=== PATIENT | female | born 2000 ===

== ENCOUNTER → 2021-05-02 00:44 | Outpatient (CLI) | payer BC, OTHER, SELFPAY ==
--- NOTE | 2021-05-02 08:00 | ETT_ITS ---
APPROVED REPORT Exam: Exercise Treadmill Patient Location: Out-Patient Room/Bed: Stress Nurse: Adeola Marcum RN Ordering Provider:SCAR BONDS, Contact Number: [phone] BMI: 22.86 Baseline Rhythm: Sinus Rhythm Comment: Sinus Arrhythmia Indications: chest pain Medical History Medical History: none Cardiac Medications: none Allergies: none Cardiac Risk Factors: Family Hx, Asthma Previous Cardiac Procedures: none Pretest Chest Pain Characteristics: none Exercise History: Physically active Physical Disabilities: none Lung Sounds: Clear to auscultation Heart Sounds: Regular Stress Test Details Test: Exercise stress testing was performed using a Elías protocol. Rest Stress HR Resting HR Supine: 60 bpm Max Heart Rate (APMHR): 199 bpm Resting HR Standin bpm Target HR (85% APMHR): 169 bpm Max HR Achieved: 188 bpm % of APMHR: 94 Recovery HR: 88 bpm HR response to stress: Normal HR response to stress BP Resting BP Supine: 110/82 mmHg Resting BP Standin/80 mmHg Max BP: 138/72 mmHg Recovery BP: 120/68 mmHg BP response to stress: Normal blood pressure response to stress. ECG Resting ECG: Sinus Rhythm Ectopy: none Comment: sinus arrhythmia Stress ECG: Sinus Tachycardia ST Change: No significant ST segment changes noted Arrhythmia: None Recovery ECG: Sinus Rhythm Recovery ST Change: No significant ST segment changes noted Recovery Arrhythmia: None Clinical Reason for Termination: Fatigue Stress Symptoms: none Exercise duration: 12 min11 sec Highest Stage Reached: Stage 5: 5.0 mph at 18% grade. Exercise capacity: 13.59 METs Functional Capacity: Above average capacity Craig Treadmill Score: 10.7 Rate Pressure Product: [id number] Stress ECG Conclusion 1. Resting electrocardiogram was within normal limits 2. The patient exercised on the Elías protocol and completed a workload of 13.59 METS 3. Normal heart rate and blood pressure response to exercise. Patient achieved 94% of predicted hear t rate for age 4. There was no electrocardiographic evidence of myocardial ischemia 5. There were no dysrhythmias 6. Overall impression was excellent exercise capacity, no findings of myocardial ischemia, no dysrhyt hmias Craig Treadmill Score is 10.7 which is Low risk. Stress Test Summary STAGE Time (mins) Speed (mph) Grade (%) HR BP SYMPTOMS METS Supine 60 110/82 Standing 75 110/80 1 3 1.7 10 102 112/78 4.6 2 6 2.5 12 117 120/78 7 3 9 3.4 14 146 124/78 10.2 1 min recovery 188 128/74 3 min recovery 113 138/72 6 min recovery 88 120/68
== END ==
PROVIDERS: Visit Provider Family Medicine
DX: R07.89 Other chest pain (principal)
CPT/HCPCS: 93017

== ENCOUNTER 2021-05-28 02:52 | Outpatient (CLI) | payer OTHER, BC, SELFPAY ==
--- NOTE | 2021-05-28 07:30 | DI.US_ITS ---
APPROVED REPORT EXAM: Comprehensive 2D, Doppler, and color-flow Echocardiogram Patient Location: Out-Patient Heat Treat Worker: Tomeka Diaz RDCS (AE) Indications: Chest pain, Q Wave Other Information Study Quality: Adequate Conclusion Normal left ventricular wall thickness and chamber size. Estimated ejection fraction is 60%. Wall m otion is normal Normal right ventricular size and systolic function Both atria are normal in size There is no structural or hemodynamically significant valvular disease Normal estimated right ventricular systolic pressure 20 mmHg Wall motion Left Ventricle The left ventricle is normal size. The left ventricular systolic function is normal. The left ventric ular ejection fraction is within the normal range. There is normal left ventricular wall thickness. T here is normal LV segmental wall motion. There is no ventricular septal defect visualized. LVEF is 60 %. Right Ventricle The right ventricle is normal size. The right ventricular systolic function is normal. The RVSP is 20 .5mmHg. Atria The left atrium size is normal. The right atrium size is normal. The interatrial septum is intact wit h no evidence for an atrial septal defect. Aortic Valve The aortic valve is normal in structure. Aortic valve is trileaflet. There is no aortic valvular sten osis. No aortic regurgitation is present. Mitral Valve The mitral valve is normal in structure. No evidence of mitral valve stenosis. Mild mitral regurgitat ion. Tricuspid Valve The tricuspid valve is normal in structure. There is no tricuspid valve stenosis. Mild tricuspid regu rgitation. Pulmonic Valve The pulmonary valve is normal in structure. There is no pulmonic valvular stenosis. Trace to mild pul dana regurgitation. Great Vessels The aortic root is normal in size. The ascending aorta is normal in size. Aortic arch is normal in ca liber. IVC is normal in size and collapses >50% with inspiration. Pericardium There is no pericardial effusion. 2D Dimensions IVSD d PLAX 0.72 cm F: 0.6-1.0 LV Vol A2C d MOD 75.8 mL LVPW d PLAX 0.73 cm F: 0.6 - 1.0 LV Vol A4C d MOD 88.7 mL LVID d PLAX 4.62 cm F: 3.8 - 5.2 LA vol/ BSA A4C s A-L 15.0 mL/m2 LVDs 3.05 cm F: 2.2 - 3.5 LA Area A4C s MOD 10.02 cm2 Ao Root d 2.72 cm F: 2.7 - 3.3 LV EF A4C MOD 61.1 % Ao Asc Diam d 2.89 cm F: 2.3 - 3.1 LV EF A2C MOD 60.0 % LV EF Teichholz 62.0 % LV EF Biplane MOD 59.2 % LVEF (Loving's) 59.24 % F: 54 - 74 SV 49.45 mL LV Volume 68.39 mL F: 46 - 106 SV Index 31.59 mL/m2 LV Volume Index 43.83 mL/m2 F: 29 - 61 LV Vol Biplane MOD 83.5 mL FS 33.30 % M-Mode TAPSE 1.86 cm (M/F) >1.7 LV Diastology MV E' medial 0.180 (>0.07 m/s) E/A Ratio 1.6 LV E/e MED 4.80 (<14) MV E Vmax 0.86 (0.4-1.3 m/s) MV E' lateral 0.180 (>0.1 m/s) MV A Vmax 0.55 (0.4-1.3 m/s) LV E/e LAT 4.80 (<14) MV E/A Ratio 1.49 MV E/E' medial 4.81 MV E/E' lateral 4.81 Aortic Valve LVOT Area 3.12 cm2 AoV Area Vmax 2.52 cm2 LVOT Vmax 0.96 m/s AoV Area/ BSA (Vmax) 1.61 cm2/m2 LVOT Mean Rishi. 0.68 m/s MARIA Mean Rishi. 2.59 cm2 LVOT Peak Grad 3.7 mmHg MARIA Mean Rishi. Index 1.66 cm2/m2 LVOT Mean Grad 2.1 mmHg LVOT VTI 0.227 m LVOT Diam s 1.95 cm AoV Vmax 1.19 m/s Velocity Ratio 0.80 AoV Mean Rishi. 0.82 m/s AoV Peak Grad 5.7 mmHg LVOT SV 70.66 mL AoV Mean Grad 3.0 mmHg AoV VTI 0.273 m AoV Area VTI 2.59 cm2 AoV Area/ BSA (VTI) 1.66 cm/m2 Mitral Valve MV DT 170 (160-240 msec) MV PHT 49 msec MV Area PHT 4.47 cm2 Pulmonary Valve PV Vmax 1.08 (0.5-1.5 m/s) RVOT Peak Gr. 2.51 mmHg PV Peak Grad 4.7 mmHg RVOT Mean Gr. 1.15 mmHg PV Mean Grad 2.3 mmHg RVOT VTI 0.192 m PV VTI 0.262 m RVOT Vmax 0.79 m/s Tricuspid Valve TR Peak Grad 17.5 mmHg TR Vmax 2.09 m/s RA Pressure 3.00 mmHg RVSP (TR) 20.5 mmHg
== END 2021-05-28 03:12 ==
PROVIDERS: Visit Provider Family Medicine
DX: R07.9 Chest pain, unspecified (principal)
CPT/HCPCS: 93306